=== PATIENT | female | born 1975 | race African-American/Black ===

== ENCOUNTER 2017-08-21 23:21 | Emergency (ER) | payer MEDICAID ==
[~2017-08-21] VITALS: Ht 160 cm; Wt 82.5 kg
[2017-08-21 23:50] VITALS: BP 200/107; PULSE 87; RESP 18; TEMP 98; O2SAT 100
--- NOTE | 2017-08-22 01:19 | RADRPT ---
EXAM DATE: 08/22/2017 1:04 AM EDT AGE/SEX: 42 years / Female INDICATIONS: Right arm pain. CLINICAL DATA: This is the patient's initial encounter. Patient reports that signs and symptoms have been present for 1 day and indicates a pain score of 10/10. MEDICAL/SURGICAL HISTORY: . Right arm pain. GI Bleed. IV right arm one week ago. None. COMPARISON: No prior exams available for comparison. FINDINGS: There is spontaneous flow documented in the brachial, basilic, cephalic, axillary, and subclavian vei ns. The vessels are compressible and augmentation response is documented. No filling defects are se en. The flow is phasic with respiration. Direction of flow in the jugular vein is caudal. Enlarged right axillary lymph node measures 2.9 x 2.4 x 3.0 cm. CONCLUSION: 1. No evidence of right upper extremity DVT. 2. Enlarged right axillary lymph node. Electronically signed by: Stan Vail MD 08/22/2017 1:18 AM EDT
[2017-08-22 01:27] VITALS: RESP 20
[2017-08-22] MEDS ORDERED: PROT40TA PO (01:32)
[2017-08-22] MEDS ORDERED: FAMO1TAB73 PO (01:32)
[2017-08-22] MEDS ORDERED: METO-309 PO (01:32)
[2017-08-22] MEDS ORDERED: WARF-23 PO (01:32)
[2017-08-22] MEDS ORDERED: PROM25TA10 PO (01:32)
[2017-08-22] MEDS ORDERED: IPRASOL INH (01:32)
[2017-08-22] MEDS ORDERED: POTA-163 PO (01:32)
[2017-08-22] MEDS ORDERED: SPIRCAP INH (01:32)
[2017-08-22] MEDS ORDERED: DULE100A INH (01:32)
[2017-08-22] MEDS ORDERED: FERR325T18 PO (01:32)
[2017-08-22] MEDS ORDERED: KEPP10002 PO (01:32)
[2017-08-22] MEDS ORDERED: OXYC-395 PO (01:32)
[2017-08-22 01:38] VITALS: BP 174/96; PULSE 82; RESP 18; O2SAT 96
[2017-08-22 01:38] LABS: AUTOMATED NEUTROPHIL # 3.4 TH/MM3 (1.8-7.7); BASOPHIL % 0.5 % (0.0-2.0); EOSINOPHIL # 0.3 TH/MM3 (0-0.4); HEMATOCRIT 31.5 % (35.0-46.0); HEMOGLOBIN 10.3 GM/DL (11.6-15.3); LYMPH % 37.5 % (9.0-44.0); LYMPHOCYTE # 2.6 TH/MM3 (1.0-4.8); MEAN CELL VOLUME 80.7 FL (80.0-100.0); MEAN CORPUSCULAR HEMOGLOBIN 26.3 PG (27.0-34.0); MEAN CORPUSCULAR HGB CONC 32.6 % (32.0-36.0); MEAN PLATELET VOLUME 7.3 FL (7.0-11.0); MONO % 7.4 % (0.0-8.0); MONOCYTE # 0.5 TH/MM3 (0-0.9); NEUT % 49.6 % (16.0-70.0); PLATELET COUNT 335 TH/MM3 (150-450); RED CELL DISTRIBUTION WIDTH 18.3 % (11.6-17.2); WHITE BLOOD COUNT 6.8 TH/MM3 (4.0-11.0)
[2017-08-22 01:40] LABS: BILIRUBIN, URINE NEG (NEG); BLOOD, URINE TRACE (NEG); GLUCOSE,URINE NEG (NEG); KETONE, URINE NEG (NEG); MUCUS URINE FEW /lpf (OCC); NITRITE,URINE NEG (NEG); PH, URINE 6.5 (5.0-8.5); SQUAMOUS EPITHELIAL CELL URINE 1 /hpf (0-5); TRANSITIONAL EPI CELLS, URINE <1 /hpf; URINE COLOR LIGHT-YELLOW (YELLW/STRAW); URINE LEUKOCYTE ESTERASE NEG (NEG)
[2017-08-22 01:50] LABS: INTERNATIONAL NORMALIZED RATIO 1.7 RATIO; PROTHROMBIN TIME - PATIENT 17.6 SEC (9.8-11.6)
[2017-08-22 01:58] LABS: BICARBONATE 27.7 MEQ/L (21.0-32.0); BLOOD UREA NITROGEN 5 MG/DL (7-18); CALCIUM 8.1 MG/DL (8.5-10.1); CHLORIDE 106 MEQ/L (98-107); CREATININE 0.64 MG/DL (0.50-1.00); GLOMERULAR FILTRATION RATE 122 ML/MIN (>89); GLUCOSE,RANDOM 107 MG/DL (74-106); SODIUM (NA) 141 MEQ/L (136-145)
[2017-08-22] MEDS ORDERED: ENOXAPARIN SODIUM 80 MG/0.8 ML SYRINGE SQ ONE (02:00)
[2017-08-22 02:02] LABS: TROPONIN I LESS THAN 0.02 NG/ML (0.02-0.05)
[2017-08-22] MEDS ORDERED: CLIN300C5 PO (02:03)
[2017-08-22] MEDS ORDERED: PROMETHAZINE INJ 25 MG/ML VIAL IM ONE (02:15)
[2017-08-22] MEDS ORDERED: ACETAMINOPHEN 325 MG TAB PO ONE (03:00)
--- NOTE | 2017-08-22 03:13 | PD ---
HPI Chief Complaint: Pain: Acute or Chronic Time Seen by Provider: 00:22 Travel History International Travel<30 days: No Contact w/Intl Traveler<30days: No History of Present Illness HPI The patient is a 42 year old female who presents to the [facility] emergency department with a history of right upper extremity pain that she reports first noticing yesterday, however it gradually became worse today. She reports that it is constant although worse with moving her right arm. She reports that she also noticed that the right arm was beginning to have some swelling. 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 The patient reports that she lives in [place]. She is chronically anticoagulated on Coumadin. She reports that she is on 10 mg daily alternating with 5 mg on Monday and . Her INR was last checked approximately a week ago and 1.6. At that time her Coumadin dose was increased by her concrete gun operator. The patient reports having a prior history of GI bleed, however she denies any hematemesis or blood in her stool. She denies having any black or tarry stools. She reports that she was recently treated with upper and lower endoscopy. The patient is concerned that she may have a DVT to the right upper extremity. She reports that she was recently in the hospital and had obtained in the right arm. She denies having any fevers or chills, cough or congestion. She reports having chronic nausea with intermittent vomiting for which she is on Phenergan. She reports that she had nausea and vomiting 4 times yesterday. On review of systems otherwise, the patient denies having any neck pain, chest pain, shortness of breath, abdominal pain, diarrhea, urinary symptoms, or neurologic symptoms. [facility] Past Medical History Narrative Medical The patient's past medical history is significant for seizure disorder, heart palpitations, rheumatoid arthritis, diabetes mellitus, pulmonary embolism, DVT, coagulopathy, history of asthma, acid reflux, sciatica, degenerative disc disease, chronic left upper extremity DVT, chronic right lower extremity DVT, carpal tunnel syndrome, bilateral shoulder pain related to rotator cuff injuries , migraine headaches. Arthritis: Yes (RA) Asthma: Yes Blood Disorders: Yes (BLOOD CLOTS) Cardiovascular Problems: Yes (PALPITATITIONS) Diabetes: Yes Patient Takes Glucophage: Yes Medical other: Yes (FACTOR 8) Immunizations Current: Yes Migraines: Yes Seizures: Yes Tetanus Vaccination: Unknown Influenza Vaccination: No ?: Not Past Surgical History Narrative Surgical The patient's past surgical history is significant for upper and lower endoscopy Social History Alcohol Use: No Tobacco Use: No Substance Use: No Allergies-Medications (Allergen,Severity, Reaction): Coded Allergies: amoxicillin (Verified Allergy, Intermediate, 08/22/17) ibuprofen (Verified Allergy, Intermediate, 08/22/17) iodine (Verified Allergy, Intermediate, 08/22/17) metoclopramide (Verified Allergy, Intermediate, 08/22/17) penicillin G (Verified Allergy, Intermediate, 08/22/17) watermelon (Verified Allergy, Intermediate, 08/22/17) Sulfa (Sulfonamide Antibiotics) (Verified Allergy, Unknown, 08/22/17) cyclobenzaprine (Verified Allergy, Unknown, 08/22/17) ketorolac (Verified Allergy, Unknown, 08/22/17) morphine (Verified Allergy, Unknown, 08/22/17) ondansetron (Verified Allergy, Unknown, 08/22/17) orange (Verified Allergy, Unknown, 08/22/17) prochlorperazine (Verified Allergy, Unknown, 08/22/17) shellfish derived (Verified Allergy, Unknown, 08/22/17) tetanus and diphtheria toxoids (Verified Allergy, Unknown, 08/22/17) Reported Meds & Prescriptions Reported Meds & Active Scripts Active Clindamycin (Clindamycin HCl) 300 Mg Cap 300 Mg PO Q6H 10 Days Reported Phenergan (Promethazine HCl) 25 Mg Tablet 25 Mg PO Q6H PRN Potassium Chloride ER (Potassium Chloride) 20 Meq Tab 20 Meq PO BID Ferrous Sulfate 325 Mg (65 Mg Iron) Tablet 325 Mg PO BIDPC Pepcid (Famotidine) 40 Mg Tab 40 Mg PO BID Oxycodone (Oxycodone HCl) 10 Mg Tab 10 Mg PO Q4H PRN Protonix (Pantoprazole Sodium) 40 Mg Tab 40 Mg PO DAILY Duoneb (Ipratropium-Albuterol Neb) 0.5-2.5 Mg/3 Ml Neb 1 Nebule INH Q4HR NEB Dulera 120 Act Inh (Mometasone-Formoterol 120 Act Inh) 100-5 Mcg/Act Inh 2 Puff INH BID Spiriva Handihaler (Tiotropium Inh) 18 Mcg Cap 18 Mcg INH DAILY 1 capsule = 18 mcg Keppra (Levetiracetam) 1,000 Mg Tab 1,000 Mg PO BID Warfarin 5 Mg Tab 5 Mg PO DAILY Lopressor (Metoprolol Tartrate) 50 Mg Tab 25 Mg PO BID Review of Systems Except as stated in HPI: all other systems reviewed are Neg General / Constitutional: No: Fever Eyes: No: Visual changes HENT: No: Headaches Cardiovascular: No: Chest Pain or Discomfort, Dyspnea on exertion Respiratory: No: Shortness of Breath Gastrointestinal: No: Abdominal Pain Genitourinary: No: Dysuria Musculoskeletal: Positive: Myalgias, Arthralgias, Edema, Pain, No: Limited ROM Skin: No Rash Neurologic: No: Weakness Psychiatric: No: Depression Endocrine: No: Polydipsia Hematologic/Lymphatic: No: Easy Bruising Physical Exam Narrative General: The patient is a well-developed well-nourished female in no acute distress. Head and Neck exam: Head is normocephalic atraumatic. Eyes: EOMI, pupils are equal round and reactive to light. The patient has a small subconjunctival hemorrhage along the nasal aspect of the left eye conjunctival. Nose: Midline septum with pink mucous membranes Mouth: Dentition unremarkable. Moist mucus membranes. Posterior oropharynx is not erythematous. No tonsillar hypertrophy. Uvula midline. Airway patent. Neck: No palpable lymphadenopathy. No nuchal rigidity. No thyromegaly. Cardiovascular: Regular rate and rhythm without murmurs, gallops, or rubs. No pulse deficit to the extremities on simultaneous auscultation and palpation of her radial artery. Lungs: Clear to auscultation bilaterally. No wheezes, rhonchi, or rales. Abdomen: Soft, without tenderness to palpation in all 4 quadrants of the abdomen. No guarding, rebound, or rigidity. Normal bowel sounds are audible. No tenderness on palpation of McBurney's point. Negative Galvez sign. Extremities: No clubbing or cyanosis. The patient has trace pedal edema bilateral lower extremities. No calf pain on palpation. The patient on examination of the right upper extremity, the area of interest has mild edema noted around the posterior wrist with what appears to be slight thickening of the skin and tenderness on palpation. The patient reports pain in the right shoulder with range of motion. She does however have full range of active motion of her shoulder, elbow, wrist, and hand. 2+ pulses in all 4 extremities. Back: No spinous process tenderness to palpation. No costovertebral angle tenderness to palpation. Neurologic Exam: Grossly nonfocal. Skin Exam: No rash noted. Intact skin that is warm and dry. Data Data Last Documented VS Vital Signs Date Time Temp Pulse Resp B/P (MAP) Pulse Ox O2 Delivery O2 Flow Rate FiO2 08/22/17 03:16 08/22/17 01:38 82 18 96 Room Air 08/21/17 23:50 98.0 Orders Orders Electrocardiogram (08/22/17 00:30) Complete Blood Count With Diff (08/22/17 00:30) Basic Metabolic Panel (Bmp) (08/22/17 00:30) Creatine Kinase (Cpk) (08/22/17 00:30) Ckmb (Isoenzyme) Profile (08/22/17 00:30) Troponin I (08/22/17 00:30) Prothrombin Time / Inr (Pt) (08/22/17 00:30) Act Partial Throm Time (Ptt) (08/22/17 00:30) Urinalysis - C+S If Indicated (08/22/17 00:30) Magnesium (Mg) (08/22/17 00:30) Iv Access Insert/Monitor (08/22/17 00:30) Ecg Monitoring (08/22/17 00:30) Oximetry (08/22/17 00:30) Us Arm Venous Doppler (08/22/17 00:30) Enoxaparin Inj (Lovenox Inj) (08/22/17 02:00) Promethazine Inj (Phenergan Inj) (08/22/17 02:15) Acetaminophen (Tylenol) (08/22/17 03:00) Labs Laboratory Tests Test 08/22/17 01:25 White Blood Count 6.8 TH/MM3 Red Blood Count 3.90 MIL/MM3 Hemoglobin 10.3 GM/DL Hematocrit 31.5 % Mean Corpuscular Volume 80.7 FL Mean Corpuscular Hemoglobin 26.3 PG Mean Corpuscular Hemoglobin Concent 32.6 % Red Cell Distribution Width 18.3 % Platelet Count 335 TH/MM3 Mean Platelet Volume 7.3 FL Neutrophils (%) (Auto) 49.6 % Lymphocytes (%) (Auto) 37.5 % Monocytes (%) (Auto) 7.4 % Eosinophils (%) (Auto) 5.0 % Basophils (%) (Auto) 0.5 % Neutrophils # (Auto) 3.4 TH/MM3 Lymphocytes # (Auto) 2.6 TH/MM3 Monocytes # (Auto) 0.5 TH/MM3 Eosinophils # (Auto) 0.3 TH/MM3 Basophils # (Auto) 0.0 TH/MM3 CBC Comment DIFF FINAL Differential Comment Prothrombin Time 17.6 SEC Prothromb Time International Ratio 1.7 RATIO Activated Partial Thromboplast Time 34.3 SEC Urine Color LIGHT-YELLOW Urine Turbidity CLEAR Urine pH 6.5 Urine Specific Calvin 1.008 Urine Protein NEG mg/dL Urine Glucose (UA) NEG mg/dL Urine Ketones NEG mg/dL Urine Occult Blood TRACE Urine Nitrite NEG Urine Bilirubin NEG Urine Urobilinogen LESS THAN 2.0 MG/DL Urine Leukocyte Esterase NEG Urine RBC 1 /hpf Urine WBC LESS THAN 1 /hpf Urine Squamous Epithelial Cells 1 /hpf Urine Transitional Epithelial Cells <1 /hpf Urine Mucus FEW /lpf Microscopic Urinalysis Comment CULT NOT INDICATED Blood Urea Nitrogen 5 MG/DL Creatinine 0.64 MG/DL Random Glucose 107 MG/DL Calcium Level 8.1 MG/DL Magnesium Level 2.0 MG/DL Sodium Level 141 MEQ/L Potassium Level 3.7 MEQ/L Chloride Level 106 MEQ/L Carbon Dioxide Level 27.7 MEQ/L Anion Gap 7 MEQ/L Estimat Glomerular Filtration Rate 122 ML/MIN Total Creatine Kinase 80 U/L Troponin I LESS THAN 0.02 NG/ML MDM Medical Decision Making Medical Screen Exam Complete: Yes Emergency Medical Condition: Yes Medical Record Reviewed: Yes Differential Diagnosis DVT, versus cellulitis, versus lymphedema Narrative Course During the course of the patient's emergency department visit, the patient's history, examination, and differential diagnosis were reviewed with the patient. The patient was placed on a surveillance system monitor with oximetry and frequent blood pressure monitoring. The patient had IV access obtained and blood work sent for analysis. The patient had an EKG done on arrival. The patient's EKG reveals a normal sinus rhythm heart rate of 91, QRS duration 76 ms, QTC [address] segment elevation. T waves are inverted in V1. The patient was initially provided promethazine 12.5 mg IM for nausea, acetaminophen 650 mg p.o. 1. The patient's laboratory studies were reviewed and remarkable for a white count of 6.8, hemoglobin 10.3, platelets 335 with 5 eosinophils, basic metabolic profile is remarkable for BUN of 5, glucose 107, calcium 8.1, magnesium 2, cardiac enzymes within normal limits, INR 1.7, urinalysis shows trace occult blood, culture not indicated Radiology studies were reviewed and remarkable for an upper extremity ultrasound reveals no evidence of right upper extremity DVT, enlarged right axillary lymph node. The patient reports that she plans on returning back home to [place] tomorrow. The patient is agreeable with the plan to proceed with a subcutaneous injection of Lovenox. The patient is instructed to continue on her Coumadin at 10 mg p.o. daily. The patient reports that she will call her concrete gun operator in the morning to discuss her INR being 1.7 whether her concrete gun operator wants her to start back on Lovenox. The patient's ultrasound showed no evidence of DVT, however she does have an enlarged right axillary lymph node with some swelling of the right arm and tenderness. The patient is unable to have IV access in the left arm and reports that she did recently have IV access of the right. This could be a subtle cellulitis, therefore the patient was started on antibiotic. Given her allergy profile she was given clindamycin. The patient was given a course to complete at home. The patient is resting comfortably and feels better, is alert and in no distress. The patient's results and examination findings were discussed with the patient. The repeat examination is unremarkable and benign. The history, exam, diagnostic testing, and current condition do not suggest any significant pathology to warrant further testing, continued ED treatment, admission, or surgical evaluation at this point. The vital signs have been stable. The patient does not have uncontrollable pain, intractable vomiting, or other significant symptoms. The patient's condition is stable and appropriate for discharge. The patient will pursue further outpatient evaluation with a primary care physician or other designated or consulting physician as indicated in the discharge instructions. The patient is instructed to report back to the emergency department immediately for reexamination in the mean time if she develops any new or worsening signs or symptoms. The patient expressed understanding and was agreeable with this plan. Diagnosis Primary Impression: Subtherapeutic anticoagulation Additional Impressions: Cellulitis Qualified Codes: L03.113 - Cellulitis of right upper limb History of coagulation disorder Referrals: Primary Care Physician 1 day Patient Instructions: Cellulitis (ED), General Instructions Med/Other Pt SpecificInfo: Prescription(s) given Scripts Clindamycin (Clindamycin) 300 Mg Cap 300 MG PO Q6H for Infection for 10 Days, #40 CAP 0 Refills Prov: Jeanne Colon MD 08/22/17 Disposition: 01 DISCHARGE HOME Condition: Stable Jeanne Colon MD Aug 22, 2017 03:13
--- NOTE | 2017-08-22 14:20 | EKG ---
Date Performed: 08/22/2017 Time Performed: 01:00:15 PTAGE: 42 years EKG: Sinus rhythm NORMAL ECG NO PREVIOUS TRACING DOCTOR: Xavier Griffin Interpretating Date/Time 08/22/2017 14:19:03
== END 2017-08-22 03:27 | disposition home or self-care (01) ==
LOC: NEPE 23:21
DX: R79.1 Abnormal coagulation profile (principal); L03.113 Cellulitis of right upper limb; G40.909 Epilepsy, unspecified, not intractable, without status epilepticus; Z79.01 Long term (current) use of anticoagulants; Z79.899 Other long term (current) drug therapy
CPT/HCPCS: 80048; 81001; 82550; 83735; 84484; 85025; 85610; 85730; 93005; 93971; 96372; 99285; J1650; J2550